=== PATIENT | male | born 1975 | race Caucasian/White ===

== ENCOUNTER 2017-07-19 15:30 | Emergency (ER) | payer MEDICAID, OTHER ==
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
[2017-07-19 17:23] LABS: CHLORIDE,CL 102 mmol/L (98-107); SODIUM,NA 135 mmol/L (136-148)
[2017-07-19] MEDS ORDERED: LORazepam 1 MG Tab PO ONE (18:57)
== END 2017-07-19 19:45 | disposition other institution (70) ==
LOC: MW.ED 15:30
DX: F32.9 Major depressive disorder, single episode, unspecified (principal); R45.851 Suicidal ideations; F17.210 Nicotine dependence, cigarettes, uncomplicated; Z79.899 Other long term (current) drug therapy
CPT/HCPCS: 36415; 80053; 80305; 81001; 84443; 85025; 99285; G0480; 99284; A9270-GY

== ENCOUNTER 2017-11-22 16:12 | Emergency (ER) | payer MEDICAID, OTHER ==
--- NOTE | 2017-11-22 16:26 | EDM.PDOC ---
ED HPI GENERAL MEDICAL PROBLEM - General Chief Complaint: General Stated Complaint: MEDICAL CLEARANCE Time Seen by Provider: 11/22/17 16:24 Source of Information: Reports: Patient History Limitations: Reports: No Limitations - History of Present Illness INITIAL COMMENTS - FREE TEXT/NARRATIVE: HISTORY AND PHYSICAL: History of present illness: Patient is a 42-year-old incarcerated male accompanied by reserve officer here for fever. Patient states that for the last few days he has not been feeling well. He states he feels chills and aches all over. He reports he has pain on the left side of his chest started with deep breaths, cough, no appetite. He denies any abdominal pain, nausea, vomiting, diarrhea, shortness of breath, left arm or jaw pain. Temperature prior to arrival to ED was 102.3F. Review of systems: As per history of present illness and below otherwise all systems reviewed and negative. Past medical history: As per history of present illness and as reviewed below otherwise noncontributory. Surgical history: As per history of present illness and as reviewed below otherwise noncontributory. Social history: No reported history of drug or alcohol abuse. Family history: As per history of present illness and as reviewed below otherwise noncontributory. Physical exam: General: Patient sitting comfortably in no acute distress. HEENT: Atraumatic, normocephalic, pupils reactive, negative for conjunctival pallor or scleral icterus, mucous membranes moist, throat clear, neck supple, nontender, trachea midline. Lungs: Rhonchi heard at the lung bases. breath sounds equal bilaterally Heart: S1S2, regular, negative for clicks, rubs, or overt murmur Abdomen: Soft, nondistended, nontender. Negative for masses or hepatosplenomegaly. Bilateral CVA tenderness Extremities: Atraumatic, negative for cords or calf pain. Neurovascular unremarkable. Neuro: Awake, alert, oriented. Cranial nerves II through XII unremarkable. Cerebellum unremarkable. Motor and sensory unremarkable throughout. Exam nonfocal. Notes: Diagnostics: CBC, CMP, troponin, lipase, UA EKG, CXR Therapeutics: Motrin Impression: Bronchitis Plan: #1 Take antibiotic as directed, alternate tylenol and motrin as needed for fever #2 Follow up with primary care provider in 7-10 days #3 Return to ED as needed as discussed Definitive disposition and diagnosis as appropriate pending reevaluation and review of above. Lower Back Pain Score (Numeric/FACES): 9 - Related Data Allergies Allergy/AdvReac Type Severity Reaction Status Date / Time No Known Allergies Allergy Verified 11/22/17 16:25 Home Meds: Home Meds Mirtazapine [Remeron] 1 tab DAILY 11/22/17 [History] hydrOXYzine pamoate [Vistaril] 1 tab BID 11/22/17 [History] Past Medical History Psychiatric History: Reports: Bipolar, Depression - Past Surgical History Musculoskeletal Surgical History: Reports: Shoulder Surgery Social & Family History - Family History Family Medical History: Noncontributory - Caffeine Use Caffeine Use: Reports: Coffee, Soda ED ROS GENERAL - Review of Systems Review Of Systems: ROS reveals no pertinent complaints other than HPI. ED EXAM, GENERAL - Physical Exam Exam: See Below (See dictation) Course - Vital Signs Last Recorded V/S: Last Vital Signs Temp 38.3 C H 11/22/17 17:06 Pulse 73 11/22/17 16:20 Resp 20 11/22/17 16:20 BP 138/110 H 11/22/17 16:20 Pulse Ox 96 11/22/17 16:20 - Orders/Labs/Meds Orders: Active Orders 24 hr Category Date Time Status EKG Documentation Completion [RC] STAT Care 11/22/17 16:35 Active Chest 2V [CR] Stat Exams 11/22/17 16:35 Taken CULTURE STREP A CONFIRMATION [] Stat Lab 11/22/17 16:55 Results CULTURE URINE [] Stat Lab 11/22/17 16:58 Received INFLUENZA A+B AG SCREEN [] Stat Lab 11/22/17 17:47 Ordered STREP SCRN A RAPID W CULT CONF [] Stat Lab 11/22/17 16:55 Ordered UA W/MICROSCOPIC [URIN] Stat Lab 11/22/17 16:58 Ordered Labs: Laboratory Tests 11/22/17 11/22/17 11/22/17 Range/Units 16:44 16:44 16:44 WBC 13.90 H (4.0-11.0) K/uL RBC 4.86 (4.50-5.90) M/uL Hgb 14.5 (13.0-17.0) g/dL Hct 41.7 (38.0-50.0) % MCV 85.8 (80.0-98.0) fL MCH 29.8 (27.0-32.0) pg MCHC 34.8 (31.0-37.0) g/dL RDW Std Deviation 42.0 (28.0-62.0) fl RDW Coeff of Ursula 13 (11.0-15.0) % Plt Count 225 (150-400) K/uL MPV 8.90 (7.40-12.00) fL Neut % (Auto) 67.1 (48.0-80.0) % Lymph % (Auto) 17.9 (16.0-40.0) % [place] % (Auto) 14.5 (0.0-15.0) % Eos % (Auto) 0.2 (0.0-7.0) % Baso % (Auto) 0.3 (0.0-1.5) % Neut # (Auto) 9.3 H (1.4-5.7) K/uL Lymph # (Auto) 2.5 H (0.6-2.4) K/uL [place] # (Auto) 2.0 H (0.0-0.8) K/uL Eos # (Auto) 0.0 (0.0-0.7) K/uL Baso # (Auto) 0.0 (0.0-0.1) K/uL Nucleated RBC % 0.0 /100WBC Nucleated RBCs # 0 K/uL INR 1.04 Sodium 135 L (136-148) mmol/L Potassium 4.3 (3.5-5.1) mmol/L Chloride 101 (98-107) mmol/L Carbon Dioxide 23.1 (21.0-32.0) mmol/L BUN 13 (7.0-18.0) mg/dL Creatinine 1.3 (0.8-1.3) mg/dL Est Cr Clr Drug Dosing 82.08 mL/min Estimated GFR (MDRD) > 60.0 ml/min Glucose 118 H (74-106) mg/dL Calcium 9.1 (8.5-10.1) mg/dL Total Bilirubin 0.4 (0.2-1.0) mg/dL AST 25 (15-37) IU/L ALT 31 (14-63) IU/L Alkaline Phosphatase 78 (46-116) U/L Troponin I < 0.050 (0.000-0.056) ng/mL Total Protein 8.3 H (6.4-8.2) g/dL Albumin 3.9 (3.4-5.0) g/dL Globulin 4.4 H (2.0-3.5) g/dL Albumin/Globulin Ratio 0.9 L (1.3-2.8) Urine Color Urine Appearance Urine pH (5.0-8.0) Ur Specific [place] (1.001-1.035) Urine Protein (NEGATIVE) mg/dL Urine Glucose (UA) (NEGATIVE) mg/dL Urine Ketones (NEGATIVE) mg/dL Urine Occult Blood (NEGATIVE) Urine Nitrite (NEGATIVE) Urine Bilirubin (NEGATIVE) Urine Urobilinogen (<2.0) EU/dL Ur Leukocyte Esterase (NEGATIVE) Urine RBC (0-2/HPF) Urine WBC (0-5/HPF) Ur Epithelial Cells (NONE-FEW) Urine Bacteria (NEGATIVE) 11/22/17 Range/Units 16:58 WBC (4.0-11.0) K/uL RBC (4.50-5.90) M/uL Hgb (13.0-17.0) g/dL Hct (38.0-50.0) % MCV (80.0-98.0) fL MCH (27.0-32.0) pg MCHC (31.0-37.0) g/dL RDW Std Deviation (28.0-62.0) fl RDW Coeff of Ursula (11.0-15.0) % Plt Count (150-400) K/uL MPV (7.40-12.00) fL Neut % (Auto) (48.0-80.0) % Lymph % (Auto) (16.0-40.0) % [place] % (Auto) (0.0-15.0) % Eos % (Auto) (0.0-7.0) % Baso % (Auto) (0.0-1.5) % Neut # (Auto) (1.4-5.7) K/uL Lymph # (Auto) (0.6-2.4) K/uL [place] # (Auto) (0.0-0.8) K/uL Eos # (Auto) (0.0-0.7) K/uL Baso # (Auto) (0.0-0.1) K/uL Nucleated RBC % /100WBC Nucleated RBCs # K/uL INR Sodium (136-148) mmol/L Potassium (3.5-5.1) mmol/L Chloride (98-107) mmol/L Carbon Dioxide (21.0-32.0) mmol/L BUN (7.0-18.0) mg/dL Creatinine (0.8-1.3) mg/dL Est Cr Clr Drug Dosing mL/min Estimated GFR (MDRD) ml/min Glucose (74-106) mg/dL Calcium (8.5-10.1) mg/dL Total Bilirubin (0.2-1.0) mg/dL AST (15-37) IU/L ALT (14-63) IU/L Alkaline Phosphatase (46-116) U/L Troponin I (0.000-0.056) ng/mL Total Protein (6.4-8.2) g/dL Albumin (3.4-5.0) g/dL Globulin (2.0-3.5) g/dL Albumin/Globulin Ratio (1.3-2.8) Urine Color YELLOW Urine Appearance CLEAR Urine pH 6.5 (5.0-8.0) Ur Specific [place] <= 1.005 (1.001-1.035) Urine Protein NEGATIVE (NEGATIVE) mg/dL Urine Glucose (UA) NEGATIVE (NEGATIVE) mg/dL Urine Ketones NEGATIVE (NEGATIVE) mg/dL Urine Occult Blood SMALL H (NEGATIVE) Urine Nitrite NEGATIVE (NEGATIVE) Urine Bilirubin NEGATIVE (NEGATIVE) Urine Urobilinogen 0.2 (<2.0) EU/dL Ur Leukocyte Esterase TRACE (NEGATIVE) Urine RBC 0-2 (0-2/HPF) Urine WBC 0-2 (0-5/HPF) Ur Epithelial Cells RARE (NONE-FEW) Urine Bacteria RARE (NEGATIVE) Meds: Medications Discontinued Medications Generic Name Dose Route Start Last Admin Trade Name Freq PRN Reason Stop Dose Admin Aspirin 324 mg 11/22/17 16:35 11/22/17 16:49 Aspirin PO 11/22/17 16:36 324 mg ONETIME ONE Administration Ibuprofen 800 mg 11/22/17 16:55 11/22/17 17:06 Motrin PO 11/22/17 16:56 800 mg ONETIME ONE Administration Departure - Departure Time of Disposition: 18:16 Disposition: Home, Self-Care 01 Condition: Good Clinical Impression: Bronchitis - Discharge Information Referrals: PCP,None [Primary Care Provider] - Forms: ED Department Discharge Additional Instructions: The following information is given to patients seen in the emergency department who are being discharged to home. This information is to outline your options for follow-up care. We provide all patients seen in our emergency department with a follow-up referral. The need for follow-up, as well as the timing and circumstances, are variable depending upon the specifics of your emergency department visit. If you don't have a primary care physician on staff, we will provide you with a referral. We always advise you to contact your personal physician following an emergency department visit to inform them of the circumstance of the visit and for follow-up with them and/or the need for any referrals to a consulting specialist. The emergency department will also refer you to a specialist when appropriate. This referral assures that you have the opportunity for follow-up care with a specialist. All of these measure are taken in an effort to provide you with optimal care, which includes your follow-up. Under all circumstances we always encourage you to contact your private physician who remains a resource for coordinating your care. When calling for follow-up care, please make the office aware that this follow-up is from your recent emergency room visit. If for any reason you are refused follow-up, please contact the Emergency Department at and asked to speak to the emergency department charge nurse. Primary Care [address] [place] [address] [id number] [address] [id number] #1 Take antibiotic as directed, alternate tylenol and motrin as needed for fever #2 Follow up with primary care provider in 7-10 days #3 Return to ED as needed as discussed - My Orders Last 24 Hours: My Active Orders 11/22/17 16:35 EKG Documentation Completion [RC] STAT Chest 2V [CR] Stat 11/22/17 16:55 CULTURE STREP A CONFIRMATION [RM] Stat STREP SCRN A RAPID W CULT CONF [RM] Stat 11/22/17 16:58 CULTURE URINE [RM] Stat UA W/MICROSCOPIC [URIN] Stat 11/22/17 17:47 INFLUENZA A+B AG SCREEN [RM] Stat - Assessment/Plan Last 24 Hours: My Active Orders 11/22/17 16:35 EKG Documentation Completion [RC] STAT Chest 2V [CR] Stat 11/22/17 16:55 CULTURE STREP A CONFIRMATION [RM] Stat STREP SCRN A RAPID W CULT CONF [RM] Stat 11/22/17 16:58 CULTURE URINE [RM] Stat UA W/MICROSCOPIC [URIN] Stat 11/22/17 17:47 INFLUENZA A+B AG SCREEN [RM] Stat
[2017-11-22] MEDS ORDERED: Aspirin 81 MG Tab.Chew PO ONE (16:35)
[2017-11-22] MEDS ORDERED: Ibuprofen 800 MG Tab PO ONE (16:55)
[2017-11-22 17:19] LABS: CHLORIDE,CL 101 mmol/L (98-107); SODIUM,NA 135 mmol/L (136-148)
--- NOTE | 2017-11-25 08:54 | CR ---
EXAM DATE: 11/22/17 PATIENT'S AGE: 42 Patient: SUSAN JAIN Facility: [place], [place] Site . Site : [id number] Study: XRay Chest [id number]/20/2018 5:02:47 PM Ordering Physician: Doctor Lane Final Report: INDICATION: fever x3 days TECHNIQUE: Chest 2 views COMPARISON: None FINDINGS: Cardiovascular and mediastinum: Heart size and vasculature are normal in caliber and appearance. Mediastinum is within normal limits. Lungs and pleural spaces: No focal consolidation. No sign of pleural effusion. No pneumothorax. Bones and soft tissues: No significant findings. IMPRESSION: No acute cardiopulmonary disease. Dictated by Mamadou Choudhury MD @ 11/22/2017 6:08:54 PM Dictated by: Mamadou Choudhury MD @ 11/22/2017 18:08:59 (Electronic Signature) Report Signed by Proxy. [facility] HOSPITALYovany
== END 2017-11-22 18:38 | disposition home or self-care (01) ==
LOC: MW.ED 16:12
DX: J40 Bronchitis, not specified as acute or chronic (principal); F31.9 Bipolar disorder, unspecified
CPT/HCPCS: 36415; 71046; 80053; 81001; 84484; 85025; 85610; 87081; 87086; 87804; 87880; 93005; 99284; A9270

== ENCOUNTER 2019-02-05 18:58 | Emergency (ER) | payer MEDICAID, OTHER ==
[2019-02-05] MEDS ORDERED: Sodium Chloride 0.9% 2.5 ML Syringe FLUSH PRN (19:25)
[2019-02-05] MEDS ORDERED: ceFAZolin 2 GM in Premix Bag 1 BAG IV ONE (19:25)
[2019-02-05] MEDS ORDERED: Sodium Chloride 0.9% 10 ML Syringe FLUSH PRN (19:25)
[2019-02-05] MEDS ORDERED: Morphine 2 MG/ML Syringe IVPUSH ONE (19:26)
[2019-02-05] MEDS ORDERED: Lidocaine 1% 10 ML MDV INJECT ONE ×3 (19:26→20:39)
[2019-02-05] MEDS ORDERED: Ketorolac 30 MG/ML SDV IVPUSH ONE (19:26)
--- NOTE | 2019-02-05 19:32 | EDM.PDOC ---
ED HPI GENERAL MEDICAL PROBLEM - General Chief Complaint: Laceration Stated Complaint: UNKNOWN Time Seen by Provider: 02/05/19 19:21 - History of Present Illness INITIAL COMMENTS - FREE TEXT/NARRATIVE: HISTORY AND PHYSICAL: History of present illness: The patient is a 43-year-old male who presents after sustaining an injury to the web space of his right hand between digits 1 and 2. The patient says a garage door grabbed and pinch the area but nothing directly impacted it. He sustained a laceration which she says is very painful and he feels like his thumb is slightly tingly but he is able to move all digits. He denies any proximal wrist forearm or elbow pain and he says he was unsure of his last tetanus shot but the computer here in the ED says he last received one in 2013 and is current. The patient is left-hand dominant. He tells me that prior to these events he was in his usual state of good health without any systemic issues. He complains of pain only at the laceration and with any movement of his fingers. He says that his fingers don't feel weak but they thumb does feel tingly and he feels that he can move them but there is pain with this movement. Review of systems: As per history of present illness and below otherwise all systems reviewed and negative. Past medical history: As per history of present illness and as reviewed below otherwise noncontributory. Surgical history: As per history of present illness and as reviewed below otherwise noncontributory. Social history: No reported history of drug or alcohol abuse. Family history: As per history of present illness and as reviewed below otherwise noncontributory. Physical exam: General: Well-developed well-nourished man who is nontoxic and vital signs were noted by me HEENT: Atraumatic, normocephalic, , negative for conjunctival pallor or scleral icterus, mucous membranes moist, throat clear, neck supple, nontender, trachea midline. Lungs: Clear to auscultation, breath sounds equal bilaterally, chest nontender. Heart: S1S2, regular rate and rhythm no overt murmurs Abdomen: Soft, nondistended, nontender. Negative for masses or hepatosplenomegaly. NABS Pelvis: Stable nontender. Genitourinary: Deferred. Rectal: Deferred. Extremities: Atraumatic, and full range of motion of all extremities with the exception of the right hand. There are no palpable bony deformities in the fingers hand or proximal wrist and forearm and there is no gross soft tissue swelling but there is an extensive laceration starting at the thenar eminence and extending in the web space between digits 1 and 2 around to the dorsal aspect of the hand. The approximate measurement is 8 cm in linear length and there is significant depth into this web space. The skin edges are irregular and jagged and there is discomfort with examination of this. The patient can flex and extend at all digits and can oppose the thumb. I cannot see the base and full extend into the web space of this laceration. Neurovascular unremarkable. At the nailbeds of digits 3,4 and 5 there are old appearing sub- unguinal hematomas and the patient says that that injury occurred several days ago and there is no tenderness or swelling in those regions. Neuro: Awake, alert, oriented. Cranial nerves II through XII unremarkable. Cerebellum unremarkable. Motor and sensory unremarkable throughout. Exam nonfocal. Diagnostics: X-ray right hand Therapeutics: Patient is current on tetanus, Ancef 2 g, IV placement with Toradol and morphine , lidocaine without epinephrine norco Procedure note: After the laceration was copiously irrigated by nursing including within the depth of the web space the procedure was explained to the patient and lidocaine without epinephrine was infused in a local fashion. The wound was explored and no foreign bodies were appreciated. The skin edges were reapproximated using a total number of # 15 sutures of 4-0 nylon. It was explained to the patient that the wound is very jagged and the web space is very compliant and reapproximation as best as possible was achieved. Bacitracin and a fluff universal hand dressing was placed by nursing. Patient tolerated procedure well and there were no complications. The proceudre was performed by SELENE Fontenot. 2057: As was discussed with Dr. Caba the hand specialist at [facility] and he wants the patient to call his office first thing in the morning and he may be able to see him for follow-up tomorrow if not then on Saturday. this info Was given to the patient. I did discuss with the patient this conversation and will give him the appropriate referrals and I will also place the patient on Keflex and give him tramadol for home. We will give him one Hastings 7.5/325 here. I've also discussed with the patient the incidental findings on the x-ray at digits 3 and 4 with tuft fractures secondary to blunt trauma that did not occur today. He is aware of this and says that he has no tenderness in this region. Impression: Extensive laceration of right hand first web space Definitive disposition and diagnosis as appropriate pending reevaluation and review of above. right hand Pain Score (Numeric/FACES): 10 - Related Data Allergies Allergy/AdvReac Type Severity Reaction Status Date / Time No Known Allergies Allergy Verified 02/05/19 19:27 Past Medical History - Past Health History Medical/Surgical History: Denies Medical/Surgical History Psychiatric History: Reports: Bipolar, Depression - Infectious Disease History Infectious Disease History: Reports: Chicken Pox - Past Surgical History Musculoskeletal Surgical History: Reports: Shoulder Surgery Social & Family History - Family History Family Medical History: Noncontributory - Tobacco Use Smoking Status *Q: Current Every Day Smoker Years of Tobacco use: 20 Packs/Tins Daily: 1 - Caffeine Use Caffeine Use: Reports: Coffee, Soda - Recreational Drug Use Recreational Drug Use: No ED ROS GENERAL - Review of Systems Review Of Systems: ROS reveals no pertinent complaints other than HPI. ED EXAM, SKIN/RASH Exam: See Below (See dictation) Course - Vital Signs Last Recorded V/S: Last Vital Signs Temp 36.3 C 02/05/19 19:00 Pulse 103 H 02/05/19 19:00 Resp 20 02/05/19 19:00 BP 135/96 H 02/05/19 19:00 Pulse Ox 97 02/05/19 19:00 - Orders/Labs/Meds Orders: Active Orders 24 hr Category Date Time Status Communication Order [RC] STAT Care 02/05/19 20:57 Active Sodium Chloride 0.9% [Saline Flush] Med 02/05/19 19:25 Active 10 ml FLUSH ASDIRECTED PRN Sodium Chloride 0.9% [Saline Flush] Med 02/05/19 19:25 Active 2.5 ml FLUSH ASDIRECTED PRN Saline Lock Insert [OM.PC] Stat Oth 02/05/19 19:25 Ordered Medication Orders Sodium Chloride (Saline Flush) 10 ml FLUSH ASDIRECTED PRN PRN Reason: Keep Vein Open Sodium Chloride (Saline Flush) 2.5 ml FLUSH ASDIRECTED PRN PRN Reason: Keep Vein Open Meds: Medications Generic Name Dose Route Start Last Admin Trade Name Freq PRN Reason Stop Dose Admin Sodium Chloride 10 ml 02/05/19 19:25 Saline Flush FLUSH ASDIRECTED PRN Keep Vein Open Sodium Chloride 2.5 ml 02/05/19 19:25 Saline Flush FLUSH ASDIRECTED PRN Keep Vein Open Discontinued Medications Generic Name Dose Route Start Last Admin Trade Name Freq PRN Reason Stop Dose Admin Hydrocodone Bitart/Acetaminophen 1 tab 02/05/19 20:59 02/05/19 21:03 Hastings 325-7.5 Mg PO 02/05/19 21:00 1 tab ONETIME ONE Administration Bacitracin 2 dose 02/05/19 20:57 02/05/19 21:00 Bacitracin Oint 1 Gm TOP 02/05/19 20:58 2 dose ONETIME ONE Administration Cefazolin Sodium/Dextrose 2 gm 50 mls @ 100 mls/hr 02/05/19 19:25 02/05/19 19 :48 / Premix IV 02/05/19 19:54 100 mls/hr ONETIME ONE Administration Ketorolac Tromethamine 30 mg 02/05/19 19:26 02/05/19 19:42 Toradol IVPUSH 02/05/19 19:27 30 mg ONETIME ONE Administration Lidocaine HCl 10 ml 02/05/19 19:26 02/05/19 20:01 Xylocaine 1% INJECT 02/05/19 19:27 Not Given ONETIME ONE Lidocaine HCl Confirm 02/05/19 19:33 02/05/19 19:58 Xylocaine-Mpf 1% Administered 02/05/19 19:34 10 ml Dose Administration 10 ml .ROUTE .STK-MED ONE Lidocaine HCl 10 ml 02/05/19 20:27 02/05/19 20:32 Xylocaine 1% INJECT 02/05/19 20:28 Not Given ONETIME ONE Lidocaine HCl 10 ml 02/05/19 20:39 02/05/19 20:40 Xylocaine 1% INJECT 02/05/19 20:40 Not Given ONETIME ONE Morphine Sulfate 4 mg 02/05/19 19:26 02/05/19 19:37 Morphine IVPUSH 02/05/19 19:27 4 mg ONETIME ONE Administration Departure - Departure Time of Disposition: 21:07 Disposition: Home, Self-Care 01 Condition: Good Clinical Impression: Laceration of right hand with complication Qualifiers: Encounter type: initial encounter Qualified Code(s): S61.411A - Laceration without foreign body of right hand, initial encounter - Discharge Information Referrals: PCP,None [Primary Care Provider] - Forms: ED Department Discharge Additional Instructions: The following information is given to patients seen in the emergency department who are being discharged to home. This information is to outline your options for follow-up care. We provide all patients seen in our emergency department with a follow-up referral. The need for follow-up, as well as the timing and circumstances, are variable depending upon the specifics of your emergency department visit. If you don't have a primary care physician on staff, we will provide you with a referral. We always advise you to contact your personal physician following an emergency department visit to inform them of the circumstance of the visit and for follow-up with them and/or the need for any referrals to a consulting specialist. The emergency department will also refer you to a specialist when appropriate. This referral assures that you have the opportunity for followup care with a specialist. All of these measure are taken in an effort to provide you with optimal care, which includes your followup. Under all circumstances we always encourage you to contact your private physician who remains a resource for coordinating your care. When calling for followup care, please make the office aware that this follow-up is from your recent emergency room visit. If for any reason you are refused follow-up, please contact the [facility] emergency department at and ask to speak to the emergency department charge nurse. Dr Ellsworth & Dr Caba [address] [facility] [id number] Please call Dr. Caba using resources given to above to be seen either later tomorrow afternoon or on Saturday for follow-up. This wound is complicated and needs close follow-up with a specialist. Please fill the perception you have been given and take antibiotics as directed and use pain meds as needed. He may also take [id number] Tylenol and ibuprofen. The dressing that has been placed on in the ED should stay on for the next 24 hours and be removed by the hand specialist tomorrow if you see him and if you are unable to see him until Saturday you may remove it tomorrow night and cleanse the area with mild soap and water pat dry and leave open to air as much as possible and if you need to cover it it should be with a gauze dressing no Band-Aids. Return to ER as needed and as discussed. Please limit movement of your thumb as this may aggravate the wound. - My Orders Last 24 Hours: My Active Orders 02/05/19 19:25 Sodium Chloride 0.9% [Saline Flush] 10 ml FLUSH ASDIRECTED PRN Sodium Chloride 0.9% [Saline Flush] 2.5 ml FLUSH ASDIRECTED PRN Saline Lock Insert [OM.PC] Stat 02/05/19 20:57 Communication Order [RC] STAT - Assessment/Plan Last 24 Hours: My Active Orders 02/05/19 19:25 Sodium Chloride 0.9% [Saline Flush] 10 ml FLUSH ASDIRECTED PRN Sodium Chloride 0.9% [Saline Flush] 2.5 ml FLUSH ASDIRECTED PRN Saline Lock Insert [OM.PC] Stat 02/05/19 20:57 Communication Order [RC] STAT
--- NOTE | 2019-02-05 20:15 | CR ---
Indication: Injury and pain Technique: Right hand 3 views Comparison: None Findings/Impression: Bones: Acute nondisplaced fracture is in the distal tuft of the right 4th finger. There is a small avulsion fracture in the tuft of the 3rd finger. An old fracture deformity is seen in the distal head of the 5th metacarpal. Joint spaces: Unremarkable. Soft tissues: Unremarkable. Dictated by Santiago Lopez MD @ Feb 05 2019 8:13PM Signed by Dr. Santiago Lopez @ Feb 05 2019 8:14PM
[2019-02-05] MEDS ORDERED: Bacitracin Oint 1 GM U/D Packet TOP ONE (20:57)
[2019-02-05] MEDS ORDERED: Acetaminophen/HYDROcodone 325-7.5 MG Tab PO ONE (20:59)
== END 2019-02-05 21:10 | disposition home or self-care (01) ==
LOC: MW.ED 18:58
DX: S61.411A Laceration without foreign body of right hand, initial encounter (principal); F17.200 Nicotine dependence, unspecified, uncomplicated; W22.8XXA Striking against or struck by other objects, initial encounter; Y92.89 Other specified places as the place of occurrence of the external cause; Y99.0 Civilian activity done for income or pay
CPT/HCPCS: 12004; 73130; 96365; 96375; 99283; A9270; J0690; J1885; J2001; J2270

== ENCOUNTER 2021-11-07 03:16 | Emergency (ER) | payer SELFPAY ==
[2021-11-07] MEDS ORDERED: Ketorolac 30 MG/ML SDV IM ONE (04:28)
[2021-11-07] MEDS ORDERED: Cyclobenzaprine 10 MG Tab PO ONE (04:28)
[2021-11-07 05:01] LABS: CARBON DIOXIDE,CO2 26.2 mmol/L (21.0-32.0); POTASSIUM,K 4.3 mmol/L (3.5-5.1)
== END 2021-11-07 06:06 | disposition home or self-care (01) ==
LOC: MW.ED 03:16
DX: U07.1 COVID-19 (principal); S39.012A Strain of muscle, fascia and tendon of lower back, initial encounter; R31.9 Hematuria, unspecified; Z79.899 Other long term (current) drug therapy; X58.XXXA Exposure to other specified factors, initial encounter
CPT/HCPCS: 36415; 74176; 80048; 81001; 85025; 87635; 96372; 99284; A9270; J1885; U0002

== ENCOUNTER 2023-03-26 15:41 | Emergency (ER) | payer SELFPAY | END 2023-03-26 16:12 | LOC: MW.ED 15:41 | CPT/HCPCS: 99283 ==